=== PATIENT | female | born 2000 | race African-American/Black ===

== ENCOUNTER 2020-01-13 00:09 | Emergency (ER) | payer OTHER ==
[~2020-01-13] VITALS: Ht 167.6 cm; Wt 56.0 kg
[2020-01-13] MEDS ORDERED: TETANUS, DIPHTHERIA, PERTUSSIS VAC/PF 0.5ML (>7YR OLD) IM ONE (00:45)
[2020-01-13] MEDS ORDERED: ACETAMINOPHEN 500MG TABLET PO ONE (00:45)
[2020-01-13 02:36] VITALS: BP 120/72
== END 2020-01-13 02:37 | disposition home or self-care (01) ==
LOC: ER 00:45
DX: S71.121A Laceration with foreign body, right thigh, initial encounter (principal); W34.00XA Accidental discharge from unspecified firearms or gun, initial encounter; Y93.89 Activity, other specified; Y92.89 Other specified places as the place of occurrence of the external cause
CPT/HCPCS: 73552; 90715; 99283